=== PATIENT | male | born 1970 | race Caucasian/White ===

== ENCOUNTER 2018-10-28 08:06 | Inpatient (IN) | payer OTHER ==
[~2018-10-28] VITALS: Ht 170.2 cm; Wt 88.5 kg
--- NOTE | 2018-10-28 19:15 | NUR ---
INTAKE ASSESSMENT BP:115/56, HR:75, RR:16, SpO2:97%, T:98 Pt is stable and able to be admitted on the unit. He reports he is here to detox from ETOH, Benzodiazepines and Buprenorphine. He denies seizures, and reports PMHx of HTN. He is noted with right leg open skin, which he reports is from a fall he had 1 week ago. Unit protocols regarding medications and vital signs every 4 hours were explained. Pt verbalized understanding. Pt noted with unsteady gait and uses a wheel chair. Will continue admission upon arrival on the unit.
[2018-10-28 20:00] VITALS: BP 117/81
[2018-10-28] MEDS ORDERED: diphenhydrAMINE 50 MG CAPSULE PO PRN (20:00)
[2018-10-28] MEDS ORDERED: LORAZEPAM 2 MG/1 ML VIAL IM PRN (20:00)
[2018-10-28] MEDS ORDERED: ONDANSETRON ODT 4 MG TAB.RAPDIS SL PRN (20:00)
[2018-10-28] MEDS ORDERED: MAG HYDROX/AL HYDROX/SIMETH 30 ML LIQUID UDC PO PRN (20:00)
[2018-10-28] MEDS ORDERED: LOPERAMIDE HCL 2 MG CAPSULE PO PRN ×2 (20:00)
[2018-10-28] MEDS ORDERED: DIAZEPAM 5 MG TABLET PO PRN (20:00)
[2018-10-28] MEDS ORDERED: DIAZEPAM 10 MG TABLET PO PRN (20:00)
[2018-10-28] MEDS ORDERED: ACETAMINOPHEN 325 MG TABLET PO PRN (20:00)
[2018-10-28] MEDS ORDERED: ONDANSETRON 4 MG/2 ML VIAL IM PRN (20:00)
[2018-10-28] MEDS ORDERED: MIRALAX 17 GM POWD.PACK PO PRN (20:00)
[2018-10-28] MEDS ORDERED: MAGNESIUM HYDROXIDE 30 ML LIQUID UDC PO PRN (20:00)
--- NOTE | 2018-10-28 20:00 | NUR ---
Admission Patient is a 48 year old male who presents to [facility] for medically supervised withdrawal from ETOH-Gin, Benzo-Valium, and Opiates- Subutex. Patient reports he has been to multiple treatment facilities in attempts to attain sobriety, including most recent to [facility]. He was then transferred to [facility] to receive further evaluation of bilateral lower extremities. He explains they also treated him there for his substance use. Bilateral lower extremities are noted with non-pitting edema, redness, and warm to touch. Right knee is noted with an dry scab, patient reports due to a fall prior to admission. Right lower extremity is noted with open wounds with scant serosanguineous drainage. Pictures placed in chart. Patient is noted to be easily irritable, disheveled, agitated, uncooperative with admission process. During admission assessment patient is noted to be inconsistent with his usage and timeline of events. He was noted to repeatedly state "I dont know why I have to do this. I answered all these questions with Faviola on the phone. Just hurry up and give me my IV and knock me out." Explained to patient of admission process. Patient was noted to with increased agitation and irritability. He is noted to keep eyes closed. Speech was loud and blunt. He reports his use as: 1. ETOH-Gin: patient reports He took his first drink at the age of 11. He noticed it became consistent at the age of [age] years old. 2 weeks ago patient was admitted into [facility] for 4 days. He was discharged and he immediately relapsed. He reports of consistently drinking 946mls for the past 10 days. His last drink was noted 10/28/18 drinking 946mls at 0830. 2. Benzo-Valium: patient reports first was prescribed Valium at the ago of 12 for Anxiety. It noticed it became an issue at the age of [age] years old. As he reported patient was admitted to [facility]. He was discharged and immediately relapsed. He reports using 10mg daily. His last use was 10/28/18 0900 using 10mg. 3. Subutex: patient reports first started using approx 1 year ago. He reports of consistently using 24mg daily. His last use was noted 10/28/18 0900 using 16mg. 4. Librium: Patient reports of first using at the age of 17. He noticed he started to abuse it at the age of [age] years old. Patient reports of using 25mg daily for the past 2 years. Patient reports his last dose 10/28/18 1200 using 25mg. Attempted to clarify if there was any sobriety prior to two years and patient was noted get agitated and states "I'm not going through this again. Just give me my meds or get me a doctor." Patient states he is currently withdrawing and states "I'm anxious and in pain." Patient reports currently signs and symptoms of withdrawal consist of "shaky, anxious, chills, sweats, body aches. I just don't feel good." Patient is noted with increased agitation, anxiety, tremulous, flushed face, sweats, light sensitivity, body aches, restless, and irritability. Patient denies history of seizures, withdrawal induced delirium, withdrawal induced cardiac complications, overdose, or blackouts, suicidal ideations, or 5150 psych hospitalization. Patient denies PCP or psychiatrist. Patient reports a past medical history of HTN with no prescribed medications and anxiety. Patient reports why he initially started using in attempt to "I'm an alcoholic." Patient reports of currently using because "The cravings are too intense. I told you I'm an alcoholic." [facility] because "I feel like I finally found a place that I'm comfortable with. I also need help with my legs." Triggers for relapse include "the cravings. When I dont feel good I just drink or take something to help me feel better." Barriers for getting or staying sober "the withdrawals." Patient explains that he is supported by his girlfriend. He verbalizes that his habits have negatively impacted his life by negatively impacting close relationships, difficulty maintain financial stability, and also impacting his overall health. When asked about residential treatment patient explains "I don't know if I want to go to residential treatment after this because Faviola promised a lot of things to me and all of it was lies." Vital signs rendered and noted. Breathing even and non labored. Lung sounds clear. Bowel sounds active with LBM noted 10/27/18. Patient follows a regular diet. No known allergies. Full code. Regular diet. Height 5'7. Weight 195lbs. Educated patient about plan of care including detox, group therapy, individual therapy, discharge planning and he is able to verbalize understanding. Patient was placed on 1:1 for safety. Admission CIWA 19 and COWS 13. All information relayed to CN and MD with new orders to start patient on PRN medications for increased signs and symptoms of withdrawal. 6 day Phenobarbital taper to start 10/29/18 0900. Labs ordered. Urine drug screen provided. All needs attended to promptly. Will continue plan of care as ordered.
[2018-10-28 21:09] LABS: *URINE HCG, QUAL NEGATIVE
[2018-10-28] MEDS: HYDROXYZINE PAMOATE 25 MG CAPSULE PO PRN (21:40)
[2018-10-28] MEDS: BUPRENORPHINE HCL 2 MG TAB.SUBL SL PRN (21:40)
[2018-10-28] MEDS: DIAZEPAM 10 MG TABLET PO PRN (21:40)
[2018-10-28] MEDS: IBUPROFEN 600 MG TABLET PO PRN (21:40)
--- NOTE | 2018-10-28 21:40 | NUR ---
PRN medication Administration Patient is noted with increased agitation, anxiety, tremulous, flushed face, sweats, light sensitivity, body aches, restless, and irritability. COWS noted to be 13 and CIWA 19. PRN Valium 20, Subutex, Tylenol, Motrin, and Vistaril administered. 1:1 remains as ordered.
[2018-10-28 21:50] LABS: BASOPHILS # (AUTO) 0.1 K/uL (0.0-8.0); BASOPHILS % (AUTO) 1.4 % (0.0-2.0); EOSINOPHILS # (AUTO) 0.1 K/uL (0.0-0.7); EOSINOPHILS % (AUTO) 2.7 % (0.0-7.0); HEMATOCRIT 33.1 % (36.7-47.1); HEMOGLOBIN 11.2 g/dL (12.5-16.3); LYMPHOCYTES # (AUTO) 1.1 K/uL (20.0-40.0); MEAN CORPUSCULAR HEMOGLOBIN 31.9 uug (23.8-33.4); MEAN CORPUSCULAR HGB CONC 34 g/dL (32.5-36.3); MEAN CORPUSCULAR VOLUME 94.2 fL (73.0-96.2); MONOCYTES # (AUTO) 0.6 K/uL (2.0-10.0); MONOCYTES % (AUTO) 14.1 % (0.0-11.0); NEUTROPHILS # (AUTO) 2.5 K/uL (1.8-8.9); NEUTROPHILS % (AUTO) 56.8 % (38.5-71.5); PLATELET COUNT (AUTO) 100 K/uL (152-348); RED BLOOD CELL COUNT(AUTO) 3.51 MIL/uL (4.06-5.63); WHITE BLOOD COUNT (AUTO) 4.5 K/uL (3.6-10.2)
[2018-10-28 21:55] LABS: *AMPHETAMINE, URINE NEGATIVE (NEGATIVE); *BARBITURATE, URINE NEGATIVE (NEGATIVE); *CANNABINOID, URINE NEGATIVE (NEGATIVE); *COCCAINE, URINE NEGATIVE (NEGATIVE); *OPIATE, URINE NEGATIVE (NEGATIVE); *PHENCYCLIDINE SCREEN,URINE NEGATIVE (NEGATIVE)
[2018-10-28 22:02] LABS: BILIRUBIN,TOTAL 0.9 mg/dL (0.2-1.0); MAGNESIUM 1.8 mg/dL (1.8-2.4); POTASSIUM 3.8 mmol/L (3.5-5.1); TOTAL PROTEIN, SERUM 9.1 g/dL (6.4-8.2)
[2018-10-28 22:13] LABS: THYROID STIMULATING HORMONE 3.804 mIU/mL (0.358-3.740)
--- NOTE | 2018-10-28 22:40 | NUR ---
PRN medication Reassessment Patient is noted in bed with eyes closed. Breathing even and non labored. No signs of restlessness or facial grimacing noted. PRN Valium, Subutex, Tylenol, Motrin, and Vistaril noted to be effective. Will continue to monitor.
[2018-10-29] VITALS (7 sets, daily range): BP systolic 97–136; BP diastolic 57–83
--- NOTE | 2018-10-29 00:51 | NUR ---
COWS and CIWA Assessment/Oxygen Order Patient is noted in bed with eyes closed. Breathing even and non labored. Patient is noted to be easily awakened to verbal stimuli upon entering room. Patient is compliant with vitals signs as ordered. He is noted to easily fall back asleep with no complications noted. Patient is noted with desaturation while sleeping. CN and MD made aware with O2 therapy ordered. Patient able to tolerate well. 1:1 remains as ordered. COWS and CIWA assessment not able to be completed as per order. Will continue to monitor.
[2018-10-29] MEDS ORDERED: SILD100T PO (01:56)
[2018-10-29] MEDS ORDERED: BUPR8TAB4 SL (01:56)
[2018-10-29] MEDS ORDERED: MUPI15CR12 TP (01:56)
[2018-10-29] MEDS ORDERED: CHLO25CA22 PO (01:56)
[2018-10-29] MEDS ORDERED: [UNRECOGNIZED DRUG - REMARK] (01:56)
[2018-10-29] MEDS: DIAZEPAM 10 MG TABLET PO PRN (01:59)
[2018-10-29] MEDS: CLONIDINE HCL 0.1 MG TABLET PO PRN ×2 (01:59→08:26)
[2018-10-29] MEDS ORDERED: NAPR220T66 PO (02:00)
[2018-10-29] MEDS ORDERED: METHOCARBAMOL 750 MG TABLET PO ONE (02:00)
[2018-10-29] MEDS ORDERED: GLYC15DR OP (02:00)
--- NOTE | 2018-10-29 02:00 | NUR ---
PRN medication Administration Patient is noted awake, verbalizing increased anxiety, agitation, tremors, chills, intermittent muscle spasm, and sweats. Patient is flushed and restless. PRN Valium 20mg, Robaxin, and Clonidine administered. Will continue to monitor.
--- NOTE | 2018-10-29 03:00 | NUR ---
PRN Medication Reassessment Patient is noted in bed with eyes closed. Breathing even and non labored. No signs of restlessness or facial grimacing noted. PRN Valium 20mg, Robaxin, and Clonidine noted to be effective. Will continue to monitor.
--- NOTE | 2018-10-29 04:29 | NUR ---
COWS and CIWA Assessment Patient is noted in bed with eyes closed. Patient remains on oxygen therapy of 2 liters and is tolerating well. No restlessness or facial grimacing noted. patient is compliant with vitals as ordered. He is noted to easily fall back asleep with no complications noted. COWS and CIWA not able to be completed as per order. 1:1 remains at bedside. Will continue to monitor.
--- NOTE | 2018-10-29 07:01 | NUR ---
End of Shift Patient is noted in bed with eyes closed. Breathing even and non labored. No signs of restlessness or facial grimacing noted. Patient remains on 1:1 for safety. Patient continues to be monitored for increased signs and symptoms of ETOH, Benzo, and Opiate withdrawal. Patient is set to start a modified 6 day Phenobarbital taper this morning 10/29/18 0900. Patient received PRN Valium 20mg x2, PRN Subutex 4mg, Motrin, Tylenol, Clonidine, and Vistaril with medications noted to be effective. Last noted COWS 9 and CIWA 19. Patient noted to sleep a total of 7 hours. New order for wound consult for bilateral lower extremities. Patient is noted with increased agitation, anxiety, restlessness, body aches, tremors, chills, sweats, and light sensitivity. Oxygen Therapy ordered for episodes of de-saturation while sleeping. Patient tolerated well. MRSA swab collected, currently awaiting results. All needs attended to promptly. Will endorse to continue plan of care as ordered.
--- NOTE | 2018-10-29 07:12 | NUR ---
Start of Shift Notes: Received endorsement from night nurse. Patient is a 48 year old male admitted for ETOH/BZO and opiate withdrawal who was placed on a PRN Subutex and 6-day Phenobarbital taper as ordered. No adverse reactions noted. Per night report, patient was given Subutex, Valium 20 mg x 2, Clonidine, Motrin, Vistaril and Tylenol during the night. Last COWS . He is currently on a 1:1 at this time due to unsteady gait. Patient has multiple wounds to his LE and requires moderate staff assistance with his ADLs. He currently uses a wheelchair for mobility. Received patient in his room. Awake, alert and verbally responsive. Oriented x 4. Denies S/I or H/I noted. No AV hallucinations noted. Patient appears anxious, agitated, restless while sitting down. He was also noted with diaphoresis, teary eyes, nasal stuffiness and complains of 6/10 generalized body aches. He states "I'm getting too claustrophobic here and I feel like I am about to have a panic attack." Patient was told that he can go outside to get fresh air. He then states "No, I want my meds to knock me out." Patient education was provided on his medication regimen and current plan of care. Patient became irritable and when he was told what meds he is currently placed in. Encouraged oral fluid intake and encouraged group participation to learn new skills to prevent relapse. All needs met and attended. Will continue to monitor closely.
[2018-10-29] MEDS: IBUPROFEN 600 MG TABLET PO PRN ×2 (08:25→20:06)
[2018-10-29] MEDS: PHENOBARBITAL 60 MG TABLET PO SCH ×4 (08:26→20:06)
[2018-10-29] MEDS: BUPRENORPHINE HCL 2 MG TAB.SUBL SL PRN (08:26)
[2018-10-29] MEDS: MULTIVITAMINS,THERAPEUTIC TABLET PO SCH (08:26)
--- NOTE | 2018-10-29 08:26 | NUR ---
Clonidine 0.1mg/Motrin 600 mg/Subutex 4 mg SL given: Patient was noted to be diaphoretic with facial flushing, gross tremors noted, yawning, teary eyes, piloerection of the skin, complains feeling hot and cold and complains generalized body aches. COWS 15. Medicated patient with Clonidine 0.1mg PO, Motrin 600 mg PO and Subutex 4 mg SL at this time. Phenobarbital taper will be started at this time.
--- NOTE | 2018-10-29 08:56 | NUR ---
Re-assessment: Subutex COWS 12, patient continues so present with s/s of withdrawal mb gross tremors, nasal stuffiness, yawning, teary eyes, myalgia, anxiety and agitation and generalized discomfort. PRN Subutex effective in reducing s/s of withdrawal.
[2018-10-29] MEDS ORDERED: 6 DAY PHENOBARBITAL TAPER -SERENITY PROTOCOL PO PRN (09:00)
[2018-10-29] MEDS ORDERED: TUBERCULIN,PURIF.PROT.DERIV. 5 TU/0.1 ML TEST ID ONE (09:00)
--- NOTE | 2018-10-29 09:26 | NUR ---
Re-assessment: Motrin/Clonidine Patient rates his pain a 1 out of 10 at this time and expressed relief from chills, hot flashes and anxiety. PRN Motrin and Clonidine effective.
--- NOTE | 2018-10-29 09:56 | NUR ---
Re-assessment: Subutex COWS 12, patient continues so present with s/s of withdrawal mb gross tremors, nasal stuffiness, yawning, teary eyes, myalgia, anxiety and agitation and generalized discomfort. PRN Subutex effective in reducing s/s of withdrawal. Addendum: 10/29/18 at 1637 by BRANDON SCOTT LVN Error in charting. Wrong time documented.
[2018-10-29] MEDS ORDERED: 5 DAY TAPER BUPRENORPHINE -SERENITY PROTOCOL SL PRN (12:45)
[2018-10-29] MEDS: CEPHALEXIN MONOHYDRATE 500 MG CAPSULE PO SCH ×2 (13:26→21:30)
[2018-10-29] MEDS: BUPRENORPHINE HCL 2 MG TAB.SUBL SL SCH ×3 (13:26→20:06)
--- NOTE | 2018-10-29 19:14 | NUR ---
End of Shift Notes: Patient initiated his 6-day Phenobarbital taper and 5-day Subutex as ordered. No adverse reactions noted. VS monitored closely. No significant abnormalities noted. Withdrawal symptoms were closely monitored. Initial COWS 15/CIWA 16, patient presented with anxiety, agitation, irritability, fatigue, gross tremors, facial flushing, diaphoresis and generalized myalgia and discomfort. Medicated patient with Clonidine, Motrin and Subutex 4 mg as ordered at 0825 with help. Last COWS / 13. Patient verbalizes that Phenobarbital has been effective in reducing his withdrawal symptoms. He continues to be on 1:1 due to assistance with ADLs. Patient uses w/c for locomotion on and off unit. Requires staff assistance with his ADLs and is at high risk for falls and self injury due to poor safety aware and unsteady gait. Wound consult to patients BLE wound pending. Podiatry consult pending. Started on oral ATB of Keflex as ordered for BLE wounds. Kept area clean and dry at all times. Appetite good. All needs met and attended. Will continue to monitor closely.
--- NOTE | 2018-10-29 19:15 | NUR ---
Start of Shift Received 48 year old male patient admitted to [facility] 10/28/18 for medically supervised withdrawal from ETOH, Benzodiazepines, and Opiates. Pt currently on day 1 of a 6 day Phenobarbital taper and day 1 of a 5 day Subutex taper, which he is tolerating well. Pt received PRN on Clonidine, Motrin, and Subutex on day shift. Last CIWA 13/ 10 @1600. Continue with a 1:1 for safety. Pt in bed resting with eyes closed. Respirations are even and unlabored. Bed low, side rails up x 2, and call ryan in reach. Will continue to monitor.
--- NOTE | 2018-10-29 20:06 | NUR ---
PRN Motrin Pt requested Motrin for pain 06/19. Medication given per order. Will monitor effect.
--- NOTE | 2018-10-29 21:06 | NUR ---
Reassess PRN Motrin Medication effective per pt, pain 4/10. Will continue to monitor.
--- NOTE | 2018-10-30 | NUR ---
CIWA/COWS deferred/Vitals refused Pt is resting with eyes closed. Respirations are even and unlabored. CIWA/COWS deferred and pt refused vitals. Will continue to monitor.
--- NOTE | 2018-10-30 04:00 | NUR ---
CIWA/COWS deferred/Vitals refused Pt is resting with eyes closed. Respirations are even and unlabored. CIWA/COWS deferred and pt refused vitals. Will continue to monitor.
[2018-10-30] MEDS: CEPHALEXIN MONOHYDRATE 500 MG CAPSULE PO SCH ×3 (05:45→21:18)
--- NOTE | 2018-10-30 06:49 | NUR ---
End of Shift Endorsing 48 year old male patient admitted to [facility] 10/28/18 for medically supervised withdrawal from ETOH, Benzodiazepines, and Opiates. Pt currently on day 2 of a 6 day Phenobarbital taper and day 2 of a 5 day Subutex taper, which he is tolerating well. Pt received PRN Motrin on shift lab technician. Last CIWA 15/ 12 @1999. Continue with a 1:1 for safety. Pt in bed resting with eyes closed. Respirations are even and unlabored. Bed low, side rails up x 2, and call ryan in reach. PO intake 1094 ml, voided x 5, BM x 0, and slept 10 hours.
--- NOTE | 2018-10-30 07:50 | NUR ---
START OF SHIFT Pt is a 48 yr old male, AA&Ox4. Pt was admitted on ETOH/Benzo/Opiate withdrawal and is on 6 day Phenobarbital taper and 5 day Subutex taper as ordered. Received report from maintenance supervisor 2nd shift nurse. pt received Motrin PRN for pain. Last COWS score was 12 and CIWA score was 15. Pt slept for 10 hrs. Pt is currently laying in bed with eyes closed but is stating he is having 8/10 pain on BLE, anxiety and shakes. Pt remains on 1:1 for unsteady gait. Pt was encouraged increase fluid intake for hydration. Will continue to monitor.
[2018-10-30 08:00] VITALS: BP 152/90
[2018-10-30] MEDS: MULTIVITAMINS,THERAPEUTIC TABLET PO SCH (09:41)
[2018-10-30] MEDS: PHENOBARBITAL 60 MG TABLET PO SCH ×3 (09:41→20:35)
[2018-10-30] MEDS: BUPRENORPHINE HCL 2 MG TAB.SUBL SL SCH ×3 (09:41→20:36)
[2018-10-30] MEDS: IBUPROFEN 600 MG TABLET PO PRN ×2 (09:41→16:25)
--- NOTE | 2018-10-30 09:41 | NUR ---
PRN GIVEN Pt is c/o BLE 05/19. Pt was given Motrin 600mg PO PRN. Pt was encouraged increase fluid intake. Will continue to monitor.
--- NOTE | 2018-10-30 10:26 | NUR ---
Therapist prompted client to attend group therapy.
--- NOTE | 2018-10-30 10:41 | NUR ---
PRN RE-ASSESSMENT Motrin PRN was mildly effective. Pt continues to c/o pain on BUE but pain level subsided to 5/10.
[2018-10-30 12:00] VITALS: BP 130/63
[2018-10-30 12:06] LABS: HEPATITIS B SURFACE AG Negative (Negative)
[2018-10-30] MEDS: ENOXAPARIN SODIUM 40 MG/0.4 ML DISP.SYRIN SQ SCH (12:54)
[2018-10-30] MEDS: HYDROXYZINE PAMOATE 25 MG CAPSULE PO PRN (16:25)
[2018-10-30] MEDS: CLONIDINE HCL 0.1 MG TABLET PO PRN (16:26)
--- NOTE | 2018-10-30 16:26 | NUR ---
PRN Clonidine 0.1mg for agitation, cold/chills, Vistaril 50mg PO for increased anxiety, and Motrin 600mg for pain 8/10 on BLE. Primary nurse to reassess. Call light within reach.
[2018-10-30 16:30] VITALS: BP 151/83
--- NOTE | 2018-10-30 17:26 | NUR ---
PRN RE-ASSESSMENT Clonidine PRN, Vistaril PRN and Motrin PRN was effective. Pt is in bed resting with respirations even and unlabored. Pt remains on 1:1 for unsteady gait. Will continue to monitor.
--- NOTE | 2018-10-30 18:51 | NUR ---
END OF SHIFT Pt is a 48 yr old male, AA&Ox4. Pt was admitted on ETOH/Benzo/Opiate withdrawal and is on 6 day Phenobarbital taper and 5 day Subutex taper as ordered. Pt has been observed wtih increase fatigue and remained in his room throughout the day. Pt was c/o increase anxiety, agitation, sweats chills and shakes. Pt was observed with fine tremors on BUE. Pt received Motrin 600mg PO PRN x2, Clonidine PRN and Vistaril PRN during the day. Medication was effective. Last COWS score was 10 and CIWA score was 14 at 1630. Pt was seen and examined by Rapid Outsole Stitcher. Pt was given orders for vascular ulcer on BLE. Pt remains on 1:1 for unsteady gait. Pt was encouraged increase fluid intake for hydration. Endorsed to production supervisor off shift nurse to continue with care. Addendum: 10/30/18 at 1912 by SRAVANTHI FIGUEROA LVN CORRECTION Pt is receiving treatment for BLE Venous Ulcer
--- NOTE | 2018-10-30 19:30 | NUR ---
Start of shift note Received report from day shift nurse. Patient is a 48 year old male admitted for ETOH, Benzodiazepine and Opiate withdrawal. Patient is on 2nd day of his 5 day Subutex and 6 day Phenobarbital . Patient was seen by auto damage estimator today. Patient has new order for vascular ulcer on both lower extremities and on antibiotic. Patient is on 1:1 for unsteady gait. Patient alert and oriented x 3. Patient reports increased anxiety, restlessness, sweating, chills, bilateral hand tremors, irritability and increased pain on both lower extremities. Relaxation technique provided. Safety measures in place. Will continue to monitor.
[2018-10-30] MEDS ORDERED: ACETAMINOPHEN 325 MG TABLET PO PRN (19:45)
[2018-10-30 20:00] VITALS: BP 148/85
[2018-10-30] MEDS ORDERED: KETOROLAC TROMETHAMINE 30 MG INJ IM ONE (20:45)
--- NOTE | 2018-10-30 21:19 | NUR ---
One time Toradol IM administration Patient c/o increased pain on both lower extremities. Will monitor for effectiveness
--- NOTE | 2018-10-31 | NUR ---
COWS and CIWA deferred Patient lying in bed with eyes closed. Respiration even and unlabored. VS refused. Will continue to monitor.
--- NOTE | 2018-10-31 04:00 | NUR ---
COWS and CIWA deferred Patient lying in bed with eyes closed. Respiration even and unlabored. VS refused. Will continue to monitor.
[2018-10-31] MEDS: CEPHALEXIN MONOHYDRATE 500 MG CAPSULE PO SCH ×3 (06:30→21:27)
--- NOTE | 2018-10-31 07:28 | NUR ---
End of shift note Monitored patient throughout shift. Continue on 1:1 for safety. Patient has new treatment order for vascular ulcer on both lower extremities and on antibiotic. Patient alert and oriented x 3. Patient reported increased anxiety, restlessness, sweating, chills, bilateral hand tremors, irritability and increased pain on both lower extremities. Relaxation technique provided. Patient was given one time Toradol IM, effective. Safety measures in place. Will continue to monitor. Patient slept 9 hours. Fluid intake 755 ml. Voided x 5. No BM. Last COWS 12 and CIWA 12.
--- NOTE | 2018-10-31 07:38 | NUR ---
WOUND CARE CONSULT WOUND CARE RECEIVED CONSULT FOR OPEN WOUNDS ON RIGHT AND LEFT LEGS. WOUND CARE WILL DEFER CONSULT AND TREATMENT PLANS TO DPM DR ESTRELLA WHO IS CURRENTLY FOLLOWING THIS PATIENT. WILL SEE PRN.
[2018-10-31 08:00] VITALS: BP 168/71
--- NOTE | 2018-10-31 08:00 | NUR ---
START OF SHIFT Pt is a 48 yr old male, AA&Ox4. Pt was admitted on ETOH/Benzo/Opiate withdrawal and is on 6 day Phenobarbital taper and 5 day Subutex taper as ordered. Received report from machinist 2nd shift nurse. Pt received Toradol 30mg x1 during the night for pain mgt. Medication was effective. Pt slept for 9 hrs. Last COWS score was 12 and CIWA score was 12. Pt is currently laying in bed avoidant in eye contact. Pt is c/o increase anxiety and BLE pain 04/18. Pt states, "the combination of Subutex and Pheno really help with the pain". Pt was re-educated on the plan of care. Pt was encouraged increase fluid intake for hydration. Pt remains on 1:1 for unsteady gait. Pt was encouraged increase fluid intake for hydration. Will continue to monitor.
[2018-10-31] MEDS: MULTIVITAMINS,THERAPEUTIC TABLET PO SCH (08:51)
[2018-10-31] MEDS: CLONIDINE HCL 0.1 MG TABLET PO PRN (08:52)
[2018-10-31] MEDS: PHENOBARBITAL 60 MG TABLET PO SCH ×4 (08:52→20:31)
--- NOTE | 2018-10-31 08:52 | NUR ---
PRN GIVEN Pt is noted with increase BP 168/71. Pt was given Clonidine 0.1mg PO PRN for increase BP. Pt was encouraged increase fluid intake for hydration. Will continue to monitor.
[2018-10-31] MEDS: ENOXAPARIN SODIUM 40 MG/0.4 ML DISP.SYRIN SQ SCH (08:56)
[2018-10-31] MEDS ORDERED: BUPRENORPHINE HCL 2 MG TAB.SUBL SL SCH (09:00)
[2018-10-31 09:05] LABS: EOSINOPHILS # (AUTO) 0.2 K/uL (0.0-0.7); HEMOGLOBIN 11.6 g/dL (12.5-16.3); LYMPHOCYTES # (AUTO) 0.6 K/uL (20.0-40.0); MONOCYTES # (AUTO) 0.4 K/uL (2.0-10.0); NEUTROPHILS # (AUTO) 2.1 K/uL (1.8-8.9); RED BLOOD CELL COUNT(AUTO) 3.62 MIL/uL (4.06-5.63)
[2018-10-31 09:14] LABS: BASOPHILS % (AUTO) 0.9 % (0.0-2.0); EOSINOPHILS % (AUTO) 6.4 % (0.0-7.0); LYMPHOCYTES % (AUTO) 18.9 % (20.5-51.5); MEAN CORPUSCULAR HGB CONC 34 g/dL (32.5-36.3); MEAN CORPUSCULAR VOLUME 93.8 fL (73.0-96.2); MONOCYTES % (AUTO) 11.2 % (0.0-11.0); NEUTROPHILS % (AUTO) 62.6 % (38.5-71.5)
[2018-10-31 09:16] LABS: PLATELET COUNT (AUTO) 69 K/uL (152-348); WHITE BLOOD COUNT (AUTO) 3.3 K/uL (3.6-10.2)
[2018-10-31 09:19] LABS: BILIRUBIN,TOTAL 1.7 mg/dL (0.2-1.0); CREATININE 0.9 mg/dL (0.6-1.3); MAGNESIUM 1.6 mg/dL (1.8-2.4); TOTAL PROTEIN, SERUM 8.6 g/dL (6.4-8.2)
[2018-10-31 09:46] LABS: EOSINOPHILS % (MANUAL) 9 % (0-8); LYMPHOCYTES % (MANUAL) 20 % (20-40); MONOCYTES % (MANUAL) 7 % (2-10); NEUTROPHILS % (MANUAL) 64 % (42-75)
[2018-10-31 09:52] VITALS: BP 138/74
--- NOTE | 2018-10-31 09:52 | NUR ---
PRN RE-ASSESSMENT Clonidine 0.1mg PO PRN was effective. Pt BP is 138/74. Pt was encouraged increase fluid intake. Will continue to monitor.
[2018-10-31 12:00] VITALS: BP 124/69
[2018-10-31] MEDS ORDERED: MAGNESIUM OXIDE 400 MG TABLET PO ONE (13:45)
[2018-10-31] MEDS: BUPRENORPHINE HCL 2 MG TAB.SUBL SL SCH ×2 (14:44→20:30)
[2018-10-31 16:00] VITALS: BP 153/77
--- NOTE | 2018-10-31 16:00 | NUR ---
NSG NOTES Pt was seen and examined by Patricia Barksdale N.P for right knee scab and lower abdomen debridement. Pictures were taken after procedure and placed in chart. Received new treatment order for wound care. Will continue to f/u.
--- NOTE | 2018-10-31 19:18 | NUR ---
END OF SHIFT Pt is a 48 yr old male, AA&Ox4. Pt has been observed with increase fatigue and drowsiness and remained in bed throughout the day. Pt was c/o increase anxiety and pain on BLE 05/19. Pt was observed moaning and restless. Pt was given Clonidine PRN for increase BP. Medication was effective. Pt was seen and examined by Patricia Bahena for right knee and lower abdomen wound debridement. Pictures were taken and placed in chart. New wound care was noted and carried out. Last COWS score was 10 and CIWA score was 13. Pt remains on 1:1 for unsteady gait. Endorsed to computer operations supervisor nurse to continue with care.
--- NOTE | 2018-10-31 19:30 | NUR ---
Start of shift note Received report from day shift nurse. Patient is a 48 year old male admitted for ETOH, Benzodiazepine and Opiate withdrawal. Patient is on 3rd day of his 6 day Phenobarbital and 5 day Subutex taper. Patient was seen by wound doctor. Patient has multiple wounds which they did debridement today. Last COWS 10 and CIWA 13. Patient alert and oriented x 4. Respiration even and unlabored. Patient present flat affect, depressed mood and disheveled. Patient reports anxiety, restlessness, irritability, sweating, and fine tremors. Relaxation technique provided. Safety measures in place .Will continue to monitor
[2018-10-31 20:00] VITALS: BP 142/85
--- NOTE | 2018-10-31 22:10 | NUR ---
Dressing change PRN Patient's right knee appears soiled with blood. Removed dressing and wound was noted to be bleeding. Wound treatment done as per order, wound is still continuously bleeding. Pressure dressing applied. Will monitor
--- NOTE | 2018-10-31 22:46 | NUR ---
MD communication Patient's wound still continuously bleeding. Dr. Lilly notified. ordered to continuously apply pressure on the dressing until bleeding is controlled.
[2018-11-01] VITALS: BP 122/78
--- NOTE | 2018-11-01 00:15 | NUR ---
ER transfer Patient's wound still uncontrolled despite multiple attempts of using pressure and sandbag. Bleeding was noted to be continuous and pulsating. When pulsating observed. ER nurse was called to the unit to assess. Per ER nurse, patient noted with arterial bleed and should be transferred to ER. Patient alert and oriented x 4. Patient denies dizziness or lightheadedness.
--- NOTE | 2018-11-01 00:18 | NUR ---
NURSING NOTE Dr. Lilly and Corrugator Helper made aware. Per warehouse clerk, it's ok to transfer pt to ER.
--- NOTE | 2018-11-01 00:38 | NUR ---
Patient was transferred to ER Patient left the unit and was transferred to ER. Patient alert and oriented x 4.
[2018-11-01] MEDS ORDERED: BUPR1FIL SL (02:06)
[2018-11-01] MEDS ORDERED: MULT1TAB73 PO (02:06)
[2018-11-01] MEDS ORDERED: IBUP-1955 PO (02:06)
[2018-11-01] MEDS ORDERED: CEPH-570 PO (02:06)
[2018-11-01] MEDS ORDERED: DIPH25TA62 PO (02:06)
[2018-11-01] MEDS ORDERED: zofran odt SL (02:06)
[2018-11-01] MEDS ORDERED: HYDR50CA PO (02:06)
[2018-11-01] MEDS ORDERED: ONDA4VIA52 IM (02:06)
[2018-11-01] MEDS ORDERED: POLY17PO4 PO (02:06)
[2018-11-01] MEDS ORDERED: MAGN400O6 PO (02:06)
[2018-11-01] MEDS ORDERED: LOPE2CAP40 PO (02:06)
[2018-11-01] MEDS ORDERED: CLON0.1T PO (02:06)
[2018-11-01] MEDS ORDERED: PHEN30TA40 PO ×2 (02:06)
[2018-11-01] MEDS ORDERED: LORA2VIA33 IM (02:06)
[2018-11-01] MEDS ORDERED: ENOX40DI SUBCUT (02:06)
[2018-11-01] MEDS ORDERED: MAG30ORA PO (02:06)
[2018-11-01] MEDS ORDERED: BUPRENORPHINE HCL 2 MG TAB.SUBL SL SCH (09:00)
[2018-11-01] MEDS ORDERED: PHENOBARBITAL 60 MG TABLET PO SCH (09:00)
[2018-11-02] MEDS ORDERED: BUPRENORPHINE HCL 2 MG TAB.SUBL SL SCH (09:00)
[2018-11-02] MEDS ORDERED: PHENOBARBITAL 60 MG TABLET PO SCH (09:00)
[2018-11-03] MEDS ORDERED: PHENOBARBITAL 60 MG TABLET PO SCH (09:00)
== END 2018-11-01 00:38 | disposition short-term general hospital (02) | DRG 982 ==
LOC: SRC 19:00
PROVIDERS: ADMIT Family Medicine Addiction Medicine; ATTEND Family Medicine Addiction Medicine
PROC: HZ2ZZZZ Detoxification Services for Substance Abuse Treatment (ICD-10-PCS; principal; 2018-10-28)
PROC: HZ31ZZZ Individual Counseling for Substance Abuse Treatment, Behavioral (ICD-10-PCS; 2018-10-30)
PROC: 0JBN0ZZ Excision of Right Lower Leg Subcutaneous Tissue and Fascia, Open Approach (ICD-10-PCS; 2018-10-31)
PROC: 0JB80ZZ Excision of Abdomen Subcutaneous Tissue and Fascia, Open Approach (ICD-10-PCS; 2018-10-31)
DX: F10.230 Alcohol dependence with withdrawal, uncomplicated (principal); L97.821 Non-pressure chronic ulcer of other part of left lower leg limited to breakdown of skin; L97.811 Non-pressure chronic ulcer of other part of right lower leg limited to breakdown of skin; L03.116 Cellulitis of left lower limb; L03.115 Cellulitis of right lower limb; L76.22 Postprocedural hemorrhage of skin and subcutaneous tissue following other procedure; F11.23 Opioid dependence with withdrawal; Y90.7 Blood alcohol level of 200-239 mg/100 ml; F41.1 Generalized anxiety disorder; I87.2 Venous insufficiency (chronic) (peripheral); S81.001A Unspecified open wound, right knee, initial encounter; S31.109A Unspecified open wound of abdominal wall, unspecified quadrant without penetration into peritoneal cavity, initial encounter; X58.XXXA Exposure to other specified factors, initial encounter; Y92.89 Other specified places as the place of occurrence of the external cause; F13.230 Sedative, hypnotic or anxiolytic dependence with withdrawal, uncomplicated; R74.0 Nonspecific elevation of levels of transaminase and lactic acid dehydrogenase [LDH]; I10 Essential (primary) hypertension
CPT/HCPCS: 36415; 80307; 80346; 83735; 84443; 84703; 85025; 85610; 86580; 86592; 86705; 86803; 87340; 87806; G0480; J1650; J1885; J8499

== ENCOUNTER 2018-11-01 00:42 | Inpatient (IN) | payer OTHER ==
[~2018-11-01] VITALS: Ht 172.7 cm; Wt 78.0 kg
[~2018-11-01 00:42] MED LIST: GLYC15DR OP; MUPI15CR12 TP; NAPR220T66 PO; SILD100T PO; [UNRECOGNIZED DRUG - REMARK]
--- NOTE | 2018-11-01 00:47 | NUR ---
Dr. Smith on phone with Dr. Restrepo.
--- NOTE | 2018-11-01 00:55 | NUR ---
Patient bib [facility] staff via hospital bed from 3rd floor ([facility]) d/t right knee wound bleed. Per staff, patient's wound has beeb bleeding nonstop for 3 hours. Staff also stated that patient had an I&D done on 10/31/18 at around 1200. Upon assessment, pt is AAO x 4 and speaking in complete sentences. Pt states he has sensation, capillary refill <3 seconds and pedal pulses present. Pressure applied to right knee wound. Pt placed on monitor. Will continue to monitor closely.
[2018-11-01] MEDS ORDERED: IV NORMAL SALINE 1000 ML BAG IV ONE (01:00)
[2018-11-01 01:15] LABS: BASOPHILS # (AUTO) 0.1 K/uL (0.0-8.0); BASOPHILS % (AUTO) 1.1 % (0.0-2.0); EOSINOPHILS # (AUTO) 0.2 K/uL (0.0-0.7); EOSINOPHILS % (AUTO) 2.7 % (0.0-7.0); HEMATOCRIT 30.1 % (36.7-47.1); HEMOGLOBIN 10.4 g/dL (12.5-16.3); LYMPHOCYTES # (AUTO) 1.2 K/uL (20.0-40.0); LYMPHOCYTES % (AUTO) 21.9 % (20.5-51.5); MEAN CORPUSCULAR HEMOGLOBIN 32.1 uug (23.8-33.4); MEAN CORPUSCULAR HGB CONC 35 g/dL (32.5-36.3); MEAN CORPUSCULAR VOLUME 92.6 fL (73.0-96.2); MONOCYTES # (AUTO) 0.6 K/uL (2.0-10.0); MONOCYTES % (AUTO) 11.6 % (0.0-11.0); NEUTROPHILS # (AUTO) 3.4 K/uL (1.8-8.9); NEUTROPHILS % (AUTO) 62.7 % (38.5-71.5); PLATELET COUNT (AUTO) 87 K/uL (152-348); RED BLOOD CELL COUNT(AUTO) 3.25 MIL/uL (4.06-5.63); WHITE BLOOD COUNT (AUTO) 5.5 K/uL (3.6-10.2)
[2018-11-01 01:54] LABS: CREATININE 0.9 mg/dL (0.6-1.3); POTASSIUM 4.2 mmol/L (3.5-5.1)
--- NOTE | 2018-11-01 02:00 | NUR ---
Right lower extremity assessment done, no active bleeding noted on right knee at this time. Pedal pulses present, capillary refill <3
[2018-11-01] MEDS ORDERED: DIPH25TA62 PO (02:06)
[2018-11-01] MEDS ORDERED: HYDR50CA PO (02:06)
[2018-11-01] MEDS ORDERED: BUPR1FIL SL (02:06)
[2018-11-01] MEDS ORDERED: MAGN400O6 PO (02:06)
[2018-11-01] MEDS ORDERED: POLY17PO4 PO (02:06)
[2018-11-01] MEDS ORDERED: MULT1TAB73 PO (02:06)
[2018-11-01] MEDS ORDERED: ONDA4VIA52 IM (02:06)
[2018-11-01] MEDS ORDERED: CLON0.1T PO (02:06)
[2018-11-01] MEDS ORDERED: LOPE2CAP40 PO (02:06)
[2018-11-01] MEDS ORDERED: zofran odt SL (02:06)
[2018-11-01] MEDS ORDERED: PHEN30TA40 PO ×2 (02:06)
[2018-11-01] MEDS ORDERED: LORA2VIA33 IM (02:06)
[2018-11-01] MEDS ORDERED: IBUP-1955 PO (02:06)
[2018-11-01] MEDS ORDERED: CEPH-570 PO (02:06)
[2018-11-01] MEDS ORDERED: ENOX40DI SUBCUT (02:06)
[2018-11-01] MEDS ORDERED: MAG30ORA PO (02:06)
[2018-11-01] MEDS ORDERED: LORAZEPAM 2 MG/1 ML VIAL IV PRN (03:45)
[2018-11-01] MEDS ORDERED: ONDANSETRON 4 MG/2 ML VIAL IV PRN (03:45)
[2018-11-01] MEDS ORDERED: ACETAMINOPHEN 325 MG TABLET PO PRN ×2 (03:45→08:30)
--- NOTE | 2018-11-01 03:58 | NUR ---
Report given to Doreen PATEL Pt. admitted to [facility] , under care of Glory TOMPKINS Belongs List completed
--- NOTE | 2018-11-01 04:10 | NUR ---
ADMITTED THIS 48 Y.O. MALE VIA [facility] ER ACCOMPANIED BY ER NURSES, ALERT AND ORIENTED X4, NO ACUTE DISTRESS NOTED, VS TAKEN AND RECORDED, RT. KNEE WRAPPED WITH COBAN,NO BLEEDING NOTED, MULTIPLE BILATERAL LE WOUNDS PRESENT.TRANSFERRED TO BED VIA TRANSFER BOARD, APPEARS VERY IRRITABLE, PT STATED (I JUST WANT TO SLEEP AND REST, DONT BOTHER ME TILL 8 AM).RT LEG ELEVATED ON PILLOW, CALL LITE W/I REACH, KEPT WARM AND COMFORTABLE.UNABLE TO ASSESS AT THIS TIME.WILL CHECK AT A LATER TIME,
[2018-11-01 04:47] VITALS: BP 114/68
--- NOTE | 2018-11-01 08:00 | NUR ---
AWAKE UNCOOPERATE KEEP WALKING AND STATE WANT TO GO HOME DSG AT RT KNEE AND LEFT LEG IN TACT NO SOB OR PAIN DISTAL PULSE CHECK Q 2HR WNL TIMBO LE WAS SWELLING RT MORE THAN LEFT CALL LIGHT IN REACH
--- NOTE | 2018-11-01 08:30 | NUR ---
EAT BREAKFAST MOD AMT PO FLD DORA WELL PATIENT KEEP CALL [facility] FLOOR TO GET HIS BELONGING AND ALL HOME MEDICATION GAVE TO HIM PRIOR GO HOME
[2018-11-01 09:27] LABS: BASOPHILS % (AUTO) 0.8 % (0.0-2.0); EOSINOPHILS # (AUTO) 0.1 K/uL (0.0-0.7); EOSINOPHILS % (AUTO) 1.8 % (0.0-7.0); HEMATOCRIT 28.3 % (36.7-47.1); HEMOGLOBIN 9.8 g/dL (12.5-16.3); LYMPHOCYTES % (AUTO) 20.8 % (20.5-51.5); MEAN CORPUSCULAR HEMOGLOBIN 32.1 uug (23.8-33.4); MEAN CORPUSCULAR HGB CONC 35 g/dL (32.5-36.3); MEAN CORPUSCULAR VOLUME 92.2 fL (73.0-96.2); MONOCYTES # (AUTO) 0.5 K/uL (2.0-10.0); MONOCYTES % (AUTO) 10.1 % (0.0-11.0); NEUTROPHILS # (AUTO) 3.3 K/uL (1.8-8.9); NEUTROPHILS % (AUTO) 66.5 % (38.5-71.5); PLATELET COUNT (AUTO) 98 K/uL (152-348); RED BLOOD CELL COUNT(AUTO) 3.07 MIL/uL (4.06-5.63)
[2018-11-01 09:47] LABS: PHOSPHOROUS 3.7 mg/dL (2.5-4.9); POTASSIUM 3.8 mmol/L (3.5-5.1)
--- NOTE | 2018-11-01 10:00 | NUR ---
INSTRUCTION TO KEEP DSG DRY INTACT AND CHECK FOR CIRCULATION - WNL NO PAIN
--- NOTE | 2018-11-01 10:30 | NUR ---
PATIENT WANT TO GO HOME AND SIGNS AMA FORM,EXPLAINED THE RISKS AND CONSEQUENCES INVOLVED IN LEAVING THE HOSPITAL AT THIS TIME , HE WAS UNDERSTAND BUT STILL WANT TO GO AND SIGNS AMA FORM FOX RAISER ERNIE LAIRD WAS INFORM OF PATIENT SIGNS AMA
--- NOTE | 2018-11-01 11:15 | NUR ---
GO HOME AMA AND ANOTHER BELONGING BAG GIVEN HIM BY SERENITY NURSE FROM THE [facility] PRIOR LEAVING THE HOSPITAL CONDITION STABLE NO BLEEDING FROM SITE AT THIS TIME
== END 2018-11-01 11:15 | disposition left against medical advice (07) | DRG 605 ==
LOC: ER 00:43 → MED 03:50
PROVIDERS: ADMIT Nurse Practitioner Acute Care; ATTEND Registered Nurse
DX: S81.001A Unspecified open wound, right knee, initial encounter (principal); D68.4 Acquired coagulation factor deficiency; N39.0 Urinary tract infection, site not specified; W19.XXXA Unspecified fall, initial encounter; Y92.89 Other specified places as the place of occurrence of the external cause; F10.20 Alcohol dependence, uncomplicated; Y90.9 Presence of alcohol in blood, level not specified; I10 Essential (primary) hypertension; F41.9 Anxiety disorder, unspecified; F17.200 Nicotine dependence, unspecified, uncomplicated; B96.89 Other specified bacterial agents as the cause of diseases classified elsewhere; K70.9 Alcoholic liver disease, unspecified; D69.6 Thrombocytopenia, unspecified; F17.210 Nicotine dependence, cigarettes, uncomplicated; D64.9 Anemia, unspecified
CPT/HCPCS: 36415; 84100; 85025; 85730; 86850; 86900; 86901; G0378; J2060; J7030